=== PATIENT | female | born 1955 | race Caucasian/White ===

== ENCOUNTER 2020-10-07 10:27 | Emergency (ER) | payer OTHER, SELFPAY ==
[2020-10-07 10:28] VITALS: BP 121/68; PULSE 108; RESP 14; TEMP 36.8; O2SAT 93; BMI 29.9
[2020-10-07 10:35] VITALS: BP 116/76; PULSE 108; RESP 20; O2SAT 92
--- NOTE | 2020-10-07 10:49 | RAD_ITS ---
EXAM DESCRIPTION: PORTABLE AP CHEST CLINICAL HISTORY: 65 years Female, syncope syncope COMPARISON: None FINDINGS: The thorax is intact. The heart and mediastinum appear to be within normal limits. The lungs appear to be well areated without evidence of pneumonic consolidation or pleural effusion. RAD/Chest 1 View (Portable) IMPRESSION: Normal portable chest. Electronically Signed: Clifford Mayer DO at 11:12 EDT Tel , Service support ,
--- NOTE | 2020-10-07 10:50 | EKG12_ITS ---
Test Reason : LETHARGIC Blood Pressure : / mmHG Vent. Rate : 102 BPM Atrial Rate : 102 BPM P-R Int : 180 ms QRS Dur : 086 ms QT Int : 366 ms P-R-T Axes : 038 -18 019 degrees QTc Int : 477 ms Sinus tachycardia Septal infarct , age undetermined Abnormal ECG Confirmed by CARYN FALK, MINI ([id number]), associate editor CHRISTOPHER PINEDA ([id number]) on 10/13/2020 9:22:14 AM Referred By: Confirmed By:MINI RUBIN MD
--- NOTE | 2020-10-07 10:51 | EX.ED.DYSGE1 ---
HPI History of Present Illness Chief Complaint: Syncope Informant: patient Narrative Narrative: 65-year-old female presents the emergency room following a syncopal episode. 2 days ago her mother was diagnosed with pancreatic cancer and has entered hospice. She had a difficult time sleeping and took 2 [id number] sleep aids last night. She has not been eating as well. Her reports that she got up this morning and drove to hospice and seemed fine. While she was at hospice large amount of family was present. All of a sudden she slumped over and passed out. He reports her blood pressure was around 106 systolic. Patient herself asked that her speak for her and she feels globally weak. She denies having any pain. She states that she is very tired. [facility] Medical History Diabetes Fibromyalgia syndrome Knee arthropathy Home Medications cholecalciferol (vitamin D3) [Vitamin D3] 125 mcg PO DAILY 10/07/20 [History Last Taken Unknown] hydrochlorothiazide 25 mg PO DAILY 10/07/20 [History Last Taken Unknown] metformin 1,000 mg PO BID 10/07/20 [History Last Taken Unknown] ramipril [Altace] 10 mg PO DAILY 10/07/20 [History Last Taken Unknown] venlafaxine 75 mg PO DAILY 10/07/20 [History Last Taken Unknown] Allergy/AdvReac Type Severity Reaction Status Date / Time No Known Allergies Allergy Verified 10/07/20 10:30 Social History (Updated 10/07/20 @ 10:[address] Celso Stack DO) Smoking Status: Never smoker substance use type: does not use ROS ROS ED Constitutional Constitutional ED: Denies chills or weight loss Eyes Eyes: Denies change in vision or diplopia ENT ENT ED: Denies ear pain, rhinorrhea or sore throat Cardiovascular Cardiovascular: Denies chest pain, orthopnea, palpitations or racing heartbeat Respiratory/Chest Respiratory/Chest: Denies cough, dyspnea or orthopnea Gastrointestinal Gastrointestinal: Denies abdominal pain, diarrhea, nausea or vomiting Genitourinary Genitourinary ED: Denies dysuria, hematuria or urinary frequency Musculoskeletal Musculoskeletal: Denies arthralgias or myalgias Integumentary Denies abscess or rash Neurologic Neurologic: Denies headache(s) or weakness Psychiatric Psychiatric: Reports depression; Denies anxiety, suicidal ideation or suicidal thoughts Endocrine Endocrinology: Denies polydipsia, polyphagia or polyuria Allergic/Immunologic Allergic/Immunologic ED: Denies mouth swelling, tongue swelling or urticaria EXAM Physical Exam Const Vital Signs: 10/07/20 10:28 10/07/20 10:35 10/07/20 10:36 Temperature 98.2 F Temperature Source Temporal Pulse Rate 108 H 108 H Pulse Rate [Lying] Pulse Rate [Sitting] Respiratory Rate 14 20 H Respiratory Effort Normal Non-Labored Blood Pressure 121/68 H 116/76 Blood Pressure [Lying] Blood Pressure [Sitting] Blood Pressure Mean 85 89 Blood Pressure Mean [Lying] Blood Pressure Mean [Sitting] Pulse Ox 93 92 Oxygen Delivery Method Room Air Room Air 10/07/20 12:01 Temperature Temperature Source Pulse Rate Pulse Rate [Lying] 91 Pulse Rate [Sitting] 89 Respiratory Rate Respiratory Effort Blood Pressure Blood Pressure [Lying] 114/69 Blood Pressure [Sitting] 123/78 H Blood Pressure Mean Blood Pressure Mean [Lying] 84 Blood Pressure Mean [Sitting] 93 Pulse Ox Oxygen Delivery Method Positive well nourished and well developed General Appearance ED: well developed HEENT Reports normocephalic, head/scalp atraumatic and moist mucous membranes Eyes PERRL and EOMs intact bilaterally Neck no lymphadenopathy, supple and no JVD Resp normal respiratory effort and clear to auscultation bilaterally Cardio regular rate, regular rhythm and no murmurs GI normal to inspection, nondistended, normoactive bowel sounds and non-tender Palpation: soft Back/Spine no CVA tenderness and normal ROM Extremity normal to inspection General Extremety ED: Negative for edema General Extremity: Negative for edema Neuro oriented x3 and CN's II-XII intact bilaterally Sensorium / Orientation: alert Motor Exam: strength 5/5 throughout Psych mental status grossly normal Mood & Affect: depressed Skin no rashes or lesions noted and no wounds MDM MDM MDM Narrative Medical decision making narrative: Basic blood work was obtained and negative. She has had no events on the monitor. My interpretation of the chest x-ray is no acute process. After liter of IV fluids and some rest the patient states that she feels much better. I had case management speak with her about grief counseling and offer services. I think between the decreased sleep the stress of her mother in hospice and not eating as well all this culminated in the patient passing out. Lab Data Attestation: I reviewed the patient's lab results. Labs: Laboratory Results - last 24 hr 10/07/20 10/07/20 10/07/20 10:40 10:40 12:40 WBC 9.7 RBC 4.89 Hgb 15.0 Hct 44.9 MCV 91.8 MCH 30.7 MCHC 33.4 RDW Std Deviation 41.7 RDW Coeff of Jodee 12.3 Plt Count 285 MPV 9.2 Immature Gran % (Auto) 0.200 Neut % (Auto) 34.8 L Lymph % (Auto) 58.9 H Glynn % (Auto) 4.6 Eos % (Auto) 1.2 Baso % (Auto) 0.3 Absolute Neuts (auto) 3.4 Absolute Lymphs (auto) 5.72 H Nucleated RBC % 0 Differential Comment COMMENT Sodium 136 Potassium 3.4 L Chloride 100 Carbon Dioxide 28.0 Anion Gap 8 BUN 16 Creatinine 0.77 Estim Creat Clear Calc 49.80 Est GFR (MDRD) Af Amer 96 Est GFR (MDRD) Non-Af 80 BUN/Creatinine Ratio 20.8 H Glucose 221 H Calcium 9.8 Total Bilirubin 1.10 H AST 44 H ALT 88 H Alkaline Phosphatase 56 Troponin I High Sens 3.4 Total Protein 7.6 Albumin 4.2 Globulin 3.4 Albumin/Globulin Ratio 1.2 Urine Color Yellow Urine Clarity Clear Urine pH 5.0 Ur Specific [place] 1.025 Urine Protein 30 H Urine Glucose (UA) 250 H Urine Ketones 15 H Urine Occult Blood Negative Urine Nitrite Negative Urine Bilirubin Negative Urine Urobilinogen Normal Ur Leukocyte Esterase Negative Urine RBC 0 SEEN Urine WBC 0 SEEN Ur Squamous Epith Cells 0 SEEN Urine Bacteria 0 SEEN Urine Mucus 2+ Radiography Diagnostic Testing: Radiology Impression Chest X-Ray 10/07/20 10:49 IMPRESSION: Normal portable chest. Electronically Signed: Clifford Mayer DO at 11:12 EDT Tel , Service support , EKG Initial EKG: Attestation: I personally reviewed and interpreted this EKG as follows: Comments: EKG demonstrates a sinus tachycardia at a rate of 102. Prior: Unchanged Discharge Plan Triage Chief Complaint: Syncope ED Provider: [place] Dx/Rx/DC Orders Clinical Impression: Syncope and collapse Instructions: Causes of Syncope, ED Grief Reaction Prescriptions: No Action venlafaxine 75 mg capsule,extended release 24hr 75 mg PO DAILY RF: 0 metformin 1,000 mg tablet 1,000 mg PO BID RF: 0 hydrochlorothiazide 25 mg tablet 25 mg PO DAILY RF: 0 ramipril [Altace] 10 mg capsule 10 mg PO DAILY RF: 0 cholecalciferol (vitamin D3) [Vitamin D3] 125 mcg (5,000 unit) Tablet 125 mcg PO DAILY RF: 0 Referrals: Alison Carvajal MD [STAFF PHYSICIAN] - As soon as possible Disposition Disposition: Home, Self Care
[2020-10-07 10:56] LABS: Absolute Lymphocyte Count 5.72 X10^3/uL (0.83-4.51); Absolute Neutrophil Count 3.4 X10^3/uL (2.0-7.7); Basophil# 0.03 X10^3/uL; Basophil% 0.3 % (0-1); Eosinophil# 0.12 X10^3/uL; Eosinophils% 1.2 % (0-5); Hematocrit 44.9 % (37-47); Lymphocyte # 5.72 X10^3/ul (0.83-4.51); Lymphocyte % 58.9 % (19-41); Mean Corp Hgb Conc 33.4 g/dL (32-36); Mean Corpuscular Hgb 30.7 pg (27.0-32.0); Mean Corpuscular Volume 91.8 fL (81-99); Mean Platelet Vol. 9.2 fl (6.2-12.0); Monocyte# 0.45 X10^3/uL; Monocyte% 4.6 % (0-10); NRBC Flagged by Analyzer 0 % (0-5); Neutrophil # 3.37 X10^3/uL (2.7-7.7); Neutrophil % 34.8 % (47-70); POSITIVE DIFFERENTIAL YES; POSITIVE MORPHOLOGY YES; Platelet Count 285 K/mm3 (150-450); RBC Distribution Width CV 12.3 % (11.6-14.6); RBC Distribution Width SD 41.7 fl (35.1-43.9); Red Blood Count 4.89 M/mm3 (4.2-5.4); White Blood Count 9.7 K/mm3 (4.4-11.0)
[2020-10-07 10:57] LABS: Differential Indicated SCAN CRITERIA MET
[2020-10-07 11:10] LABS: ALB/GLOB Ratio 1.2 RATIO (0.9-2.4); AST(SGOT) 44 U/L (15-37); Alanine Aminotransfer ALT/SGPT 88 U/L (13-56); Albumin, Serum 4.2 g/dL (3.2-5.0); Alkaline Phosphatase 56 U/L (45-117); Anion Gap 8 (5-15); BUN 16 mg/dL (7-18); BUN/Creat Ratio 20.8 RATIO (10-20); Calcium,Total 9.8 mg/dL (8.5-10.1); Chloride 100 mmol/L (98-107); Creatinine, Serum 0.77 mg/dL (0.55-1.02); EST Glomerular Filtration Rate 80 mL/min (>60); Est Glom Filt Rate - Afr Amer 96 mL/min (>60); Globulin 3.4 g/dL (2.2-4.2); Glucose 221 mg/dL (74-106); Potassium 3.4 mmol/L (3.5-5.1); Protein, Total 7.6 g/dL (6.4-8.2); Sodium Level 136 mmol/L (136-145); Troponin-I HS 3.4 pg/mL (3.0-53.7)
[2020-10-07] MEDS: 0.9% Normal Saline 1,000 ML 1000 ML IV (11:56)
[2020-10-07 12:01] VITALS: BP 114/69; BP 123/78; PULSE 89; PULSE 91
[2020-10-07 12:44] LABS: Bacteria 0 SEEN /hpf (None Seen); Red Blood Cells-Urine 0 SEEN /hpf (0-5); Squamous Epithelial Cells - UA 0 SEEN /hpf (5-10); White Blood Cells 0 SEEN /hpf (0-5)
[2020-10-07 12:47] LABS: Color, Urine Yellow (Yellow); Glucose, Dipstick 250 mg/dl (Normal); Ketone-Dipstick 15 mg/dl (Negative); Leukocyte Esterase-Dipstick Negative /ul (Negative); Nitrite-Dipstick Negative (Negative); Occult Blood-Urine Negative /ul (Negative); Protein-Dipstick 30 mg/dl (Negative); Specific Gravity, Urine 1.025 (1.002-1.030); Urine Bilirubin Dipstick Negative (Negative); Urine Clarity Clear (Clear); Urine Urobilinogen Normal (Normal)
[2020-10-07 12:56] LABS: Mucous, Urine 2+ /hpf (<or=2+)
[2020-10-07 13:59] VITALS: BP 113/69; PULSE 79; RESP 6; O2SAT 99
--- NOTE | 2020-10-07 16:54 | CM.ED ---
Addendum entered by Rula Jones 10/07/20 16:59: Patient gave verbal consent to speak to hospice staff regarding additional support for patient. SW called [facility] and spoke to Gabriel and asked him about given patient additional support during this period of time. Gabriel indicated he would have social services technician from hospice follow up with patient. MD updated. Plan: cellar worker will provide additional support for patient. Rula MATHUR Original Note: THOMAS Note Referral Source: MD Referral Reason: Grief/Loss/Bereavement SW attempted to meet with patient at 12:10. She was sleeping SW met with patient. She indicated she is feeling alot better. She said that her mom, who is inpatient hospice, is not in pain and doing as could be expected. SW talked to patient about self care and taking care of herself. SW asked if this typewriter repairer could call hospice and ask that the lithography contact worker follow up with them and patient can verbal consent.
== END 2020-10-07 14:00 | disposition home or self-care (01) ==
PROVIDERS: Emergency Provider Emergency Medicine; PCP Internal Medicine
DX: R55 Syncope and collapse (principal); E11.9 Type 2 diabetes mellitus without complications; M79.7 Fibromyalgia; Z79.84 Long term (current) use of oral hypoglycemic drugs; Z79.899 Other long term (current) drug therapy
CPT/HCPCS: 71045; 80053; 81001; 84484; 85025; 93005; 96360; 96361; 99285; J7030; P9612; A4216